=== PATIENT | female | born 1990 | race Two or more races ===

== ENCOUNTER 2017-06-04 12:42 | Emergency (ER) | payer MEDICAID ==
[~2017-06-04] VITALS: Ht 175.3 cm; Wt 54.4 kg
[2017-06-04 12:56] VITALS: BP 115/73
[2017-06-04] MEDS ORDERED: TYLENOL EXTRA500 MG ORAL (13:16)
[2017-06-04] MEDS ORDERED: PROMETHAZINE-C118 M1 ORAL (13:16)
--- NOTE | 2017-06-04 13:17 | Emergency Room Report ---
History of Present Illness General Chief Complaint: Upper Respiratory Illness Source: Patient Present Illness HPI 27 yo female patient presents to flu-like symptoms and cough [id number]. Patient reports subjective fever and chills. Patient reports cough and congestion. Reports use of cough medication with mild relief of symptoms; reports coughing worse at night. Patient also complains of sore throat during this time. Patient reports hx of sick contacts. Patient denies nausea, vomiting, diarrhea, abdominal pain, dysuria, Patient denies BRANHAM, vision changes. Allergies: Coded Allergies: No Known Allergies (Unverified , 06/04/17) Patient History Past Medical History: see triage record Last Menstrual Period: 05/03/17 Reviewed Nursing Documentation: PMH: Agreed, PSxH: Agreed Nursing Documentation-PMH Past Medical History: No Stated History Review of Systems All Other Systems: negative except mentioned in HPI Physical Exam Vital Signs Date Time Temp Pulse Resp B/P (MAP) Pulse Ox O2 Delivery O2 Flow Rate FiO2 06/04/17 12:45 98.0 89 18 113/77 99 Room Air 98.1 Sp02 EP Interpretation: reviewed, normal General Appearance: well appearing, no apparent distress, alert, GCS 15, non- toxic Head: normocephalic, atraumatic Eyes: bilateral eye normal inspection, bilateral eye PERRL ENT: hearing grossly normal, normal pharynx, no angioedema, normal voice, TMs + canals normal, uvula midline, moist mucus membranes, nasal congestion, pharyngeal erythema Neck: full range of motion Respiratory: normal inspection, lungs clear, normal breath sounds, no rhonchi, no respiratory distress, no retraction, no accessory muscle use, no wheezing, speaking full sentences Cardiovascular #1: regular rate, rhythm, no gallop, no murmur, no rub Gastrointestinal: normal bowel sounds, non tender, soft, no mass, no organomegaly, non-distended, no guarding, no rebound Genitourinary: no CVA tenderness Musculoskeletal: back normal, digits/nails normal, gait/station normal, normal range of motion, no calf tenderness Neurologic: alert, oriented x3, responsive, motor strength/tone normal, normal gait Skin: normal color, no rash, warm/dry Lymphatic: no adenopathy Medical Decision Making PA Attestation Dr. Allan is my supervising Physician whom patient management has been discussed with. Diagnostic Impression: Primary Impression: Upper respiratory infection ER Course Pt presents to ED c/o cough and flu-like symptoms. DDX considered but are not limited to influenza, viral URI, strep throat, rhinitis, sinusitis, otitis media. VITAL SIGNS are WNL, patient is afebrile ORDERS: none required at this time, diagnosis is clinical ED INTERVENTIONS: none required at this time DISCHARGE: At this time pt is stable for d/c to home. Patient is resting comfortably, in no acute distress, nontoxic appearing. -Rx given for Tylenol/Acetaminophen -Rx given for Promethazine syrup for cough sx. Patient to take medications as instructed Will provide with patient care instructions and any necessary prescriptions. Care plan and follow-up instructions provided. Patient instructed to follow-up with primary care provider in 3 - 5 days. Patient questions asked and answered. Patient understands and agrees to treatment plan. ER precautions given. Patient instructed to return to ER immediately for any new or worsening of symptoms including but not limited to increasing SOB, persistent fever. Last Vital Signs Date Time Temp Pulse Resp B/P (MAP) Pulse Ox O2 Delivery O2 Flow Rate FiO2 06/04/17 12:56 80 18 Room Air 06/04/17 12:56 98.1 115/73 99 98.1 Disposition: HOME, SELF-CARE Condition: Stable Scripts Acetaminophen* (TYLENOL EXTRA STRENGTH*) 500 Mg Tablet 500 MG ORAL Q8H Y for Prn Headache/Temp > 101, #30 TAB 0 Refills Prov: Wil Patel 06/04/17 Codeine/Promethazine Hcl* (PROMETHAZINE-CODEINE SYRUP*) 118 Ml Syrup 5 ML ORAL Q6H Y for For Cough for 7 Days, #118 ML 0 Refills Prov: Wil Patel 06/04/17 Patient Instructions: Upper Respiratory Infection, Adult Additional Instructions: Followup with primary care provider in 3 -5 days. Take medications as directed. Patient questions asked and answered. ER precautions given, patient instructed to return to ER immediately for any new or worsening of symptoms. Wil Patel Jun 04, 2017 13:17
[2017-06-04 13:24] VITALS: BP 115/73
== END 2017-06-04 13:24 | disposition home or self-care (01) ==
LOC: EMR 12:55
DX: J06.9 Acute upper respiratory infection, unspecified (principal)
CPT/HCPCS: 99284